=== PATIENT | female | born 1980 | race Caucasian/White ===

== ENCOUNTER 2017-12-19 01:00 | Emergency (ER) | payer MEDICAID, OTHER ==
[2017-12-19] MEDS: HYDROCODONE/APAP (5/325) TAB PO ×2 (01:49→03:10)
[2017-12-19] MEDS: ONDANSETRON (ODT) 4 MG TAB ODT ×2 (01:49→03:10)
== END 2017-12-19 03:05 | disposition home or self-care (01) ==
LOC: FTE 01:00
DX: M25.552 Pain in left hip (principal); M79.602 Pain in left arm; M79.605 Pain in left leg; R07.81 Pleurodynia
CPT/HCPCS: 71045; 73000; 73030; 73510; 73590; 81025; 99284-25